=== PATIENT | female | born 1965 | race Caucasian/White ===

== ENCOUNTER 2020-03-29 13:24 | Inpatient (IN) | payer OTHER ==
[~2020-03-29] VITALS: Ht 160 cm; Wt 67.1 kg
--- NOTE | ~2020-03-29 | EMS ---
[place] [address] EMS Patient Care Report Name: BRI DAVIS Room #: 236-P ADM IN M.R.#: [id number] Admission: 03/29/20 Attend Phys: Alana Jefferson MD Discharge: Date of : 65 Report #: [id number] THIS REPORT FOR: //name// Report Transmitted: 03/30/2020 06:31 EMS Care Summary [place], [place]/[facility] Incident [id number] @ 03/29/2020 12:41 [address] [place] [address] Patient KIMBERLEE DAVIS Female, 54 Years 1965 Patient Address [address] [place] [address] Patient History Thyroid Disease,Multiple Sclerosis,Knee Replacement, Patient Allergies Augmentin,Tetanus Toxoid Vaccine, Patient Medications Singulair, Oxybutynin, Other, Chief Complaint WEAKNESS Disposition Transported No Lights/[place] Dispatch Reason Sick Person Transported To [facility] Narrative MEDIC 528 FINDS PT SITTING ON PORCH WITH MOTHER. PT APPEARS IN NO OBVIOUS DISTRESS, IS AAOX4, AND GCS 15. PT STATES SHE IS FEELING WEAKER THAN USUAL AND HAS BEEN FALLING MORE FREQUENTLY. PT DENIES HITTING HEAD AND SAYS FALLS ARE DUE TO LACK OF STRENGTH AND BALANCE. PT STATES [place] [address] EMS Patient Care Report Name: BRI DAVIS Room #: 236-P [facility] IN [facility]#: [id number] Admission: 03/29/20 Attend Phys: Alana Jefferson MD Discharge: Date of : 65 Report #: [id number] STARTING 2 WEEKS AGO, SINCE THEN, SHE HAS FALLEN OVER 10 TIMES. PT SLEPT ON FLOOR LAST NIGHT BECAUSE SHE COULD NOT GET UP. PT STATES SHE HAS NOT BEEN COUGHING, HAVING SHORTNESS OF BREATH, OR NAUSEA/VOMITING RECENTLY. PT DOES BELIEVE SHE HAS A UTI, BECAUSE SHE CHRONICALLY HAS UTI'S. PT COMPLAINS OF NO PAIN BUT DOES SHOW SCARS FROM FALLS AND SURGERIES TO M528. PT IS UNHAPPY WITH HER NEUROLOGIST BECAUSE HE DOES NOT SEE HER IN HOSPITAL. PT DECIDES SHE WANTS TO GO TO [facility]. PT IS ASSISTED TO STRETCHER AND MOVED ONTO AMBULANCE WITHOUT INCIDENT. VITALS ARE CONTINUALLY MONITORED EN ROUTE TO HOSPITAL. PT IS MOVED INTO HOSPITAL WITH A MASK WITHOUT INCIDENT. PT CARE SUCCESSFULLY TRANSFERRED TO [facility]. Initial Vitals @12:59P: 104,R: 18,BP: 109/58,GCS: 15,CO: 9,SpO2: 96,Revised Trauma: 12, @13:08P: 104,R: 16,BP: 113/62,Pain: 10/10,GCS: 15,CO: 12,SpO2: 97,Revised Trauma: 12, Assessments @12:47MENTAL:Person Oriented,Time Oriented,Place Oriented,Event Oriented,SKIN:HEENT:Head/Face: No Abnormalities,Neck/Airway: No Abnormalities,LUNG SOUNDS:General: No Abnormalities,Left Upper: No Abnormalities,Right Upper: No Abnormalities,Left Lower: No Abnormalities,Right Lower: No Abnormalities,ABDOMEN:General: No Abnormalities,Left Upper: No Abnormalities,Right Upper: No Abnormalities,Left Lower: No Abnormalities,Right Lower: No Abnormalities,PELVIS//GI:Pelvis GUOther,EXTREMITIES:Capillary Refill: Right Upper: < 2 Sec,Left Arm: No Abnormalities,Right Arm: No Abnormalities,Left Leg: No Abnormalities,Right Leg: No Abnormalities,PULSE:Radial: 2+ Normal,NEURO:Abnormal Gait,Weakness Left-Sided,Tremors,Other,Weakness Right-Sided, Impression Generalized Weakness Procedures @12:47ALS AssessmentResponse: UnchangedSucceeded@12:56StretcherResponse: Unchanged@12:59Saline Lock 10cc (18 ga) Site: Antecubital-LeftResponse: UnchangedSucceeded Timeline 12:39,Call Received 12:39,Dispatch Notified 12:41,Dispatched 12:41,En Route 12:46,On Scene 12:47,At Patient 12:47,ALS Assessment,Response: UnchangedSucceeded, [facility] [address] [place] [address] EMS Patient Care Report Name: BRI DAVIS Room #: 236-P [facility] IN M.R.#: [id number] Admission: 03/29/20 Attend Phys: Alana Jefferson MD Discharge: Date of : 65 Report #: [id number] 12:56,Stretcher,Response: Unchanged 12:59,BP: 109/58 M,PULSE: 104,RR: 18 R,SPO2: 96 Ox,ETCO2: ,BG: ,PAIN: ,GCS: 15, 12:59,Saline Lock 10cc 18 ga Site: Antecubital-Left,Response: UnchangedSucceeded, 13:03,Depart Scene 13:08,BP: 113/62 M,PULSE: 104,RR: 16 R,SPO2: 97 Ox,ETCO2: ,BG: ,PAIN: 10,GCS: 15, 13:08,At Destination 13:33,Call Closed Disclaimer v1.1 Copyright 2020 [employer] This EMS Care Summary contains data elements from the applicable legal record (which may be displayed differently). It is designed to provide pertinent information for the following purposes: continuity of care, clinical quality, and state data reporting. The complete legal record is available to ED staff and administrators of the receiving hospital in ES's Patient Tracker. All data is provided "as is."
[~2020-03-29 13:24] MED LIST: ALLEGRA30 MG; AVIANE1 EACH PO; BACLOFEN; CLEOCIN HCL300 MG PO; CYMBALTA60 MG PO; KEFLEX500 MG PO; LEVOTHYROXINE 0.1 MG PO; LEXAPRO20 MG; LIORESAL 10 MG10 MG PO; MECLIZINE HCL25 M1; NEURONTIN 300300 M1 PO; OXYBUTYNIN 5 MG5 M2 PO; PROTONIX 20 MG20 M1; SINGULAIR PO; SYMBICORT160 MCG/4.; SYNTHROID125 MCG; TRAZODONE HCL50 MG PO; VICODIN; YASMIN 28 TABL1 EACH
[2020-03-29 13:25] VITALS: BP 116/74
[2020-03-29 14:20] LABS: HEMATOCRIT 27.3 % (37.0-47.0); HEMOGLOBIN 9.5 gm/dL (12.0-15.0); MCH 28.9 pg (26.0-34.0); MCHC 34.7 g/dL (28.0-37.0); MCV 83.2 fL (80.0-100.0); PLATELET COUNT 310 thou/uL (150-400); RBC 3.28 mil/uL (4.20-5.00); RDW 15.5 % (10.5-14.5); WBC 7.3 thou/uL (4.0-11.0)
[2020-03-29 14:38] LABS: ALBUMIN 2.4 g/dL (3.4-5.0); CALCIUM 8.3 mg/dL (8.5-10.1); CREATININE 0.9 mg/dL (0.6-1.0); TOTAL BILIRUBIN 0.6 mg/dL (0.2-1.0); TOTAL PROTEIN 6.3 g/dL (6.4-8.2)
[2020-03-29 14:42] LABS: POTASSIUM 2.8 mmol/L (3.5-5.1)
[2020-03-29 15:00] LABS: ABSOLUTE NEUTROPHILS 4.9 thou/uL (1.4-8.2); ANISOCYTOSIS SLIGHT; ATYPICAL LYMPHS 1 %; NUCLEATED RBCS 1 /100WBC; PLATELET ESTIMATE NORMAL
[2020-03-29 15:06] LABS: URINE BILIRUBIN NEGATIVE (Negative); URINE BLOOD 1+ (Negative); URINE CLARITY SL CLOUDY; URINE COLOR YELLOW; URINE GLUCOSE-RANDOM* NEGATIVE (Negative); URINE KETONES NEGATIVE (Negative); URINE NITRITE-REFLEX NEGATIVE (Negative); URINE PROTEIN (DIPSTICK) TRACE (Negative); URINE SPECIFIC GRAVITY <= 1.005 (1.005-1.035)
[2020-03-29 15:07] LABS: URINE LEUKOCYTES-REFLEX 3+ (Negative)
[2020-03-29 15:33] LABS: CASTS None Seen /LPF (None Seen); SQUAMOUS 0-3 Few /LPF (0-3)
[2020-03-29 15:34] LABS: BACTERIA-REFLEX >30 Many /HPF (None Seen); CRYSTALS None Seen /LPF (None Seen); URINE RBC 0-2 Rare /HPF (0-2); URINE WBC-REFLEX >25 Many /HPF (0-5)
[2020-03-29] MEDS ORDERED: OXYBUTYNIN 5 MG5 M2 PO (16:24)
[2020-03-29] MEDS ORDERED: PROVIGIL 200 M200 MG PO (16:25)
[2020-03-29] MEDS ORDERED: OXYBUTYNIN 5 MG5 M1 PO (16:26)
[2020-03-29] MEDS ORDERED: CYMBALTA60 MG PO (16:31)
[2020-03-29] MEDS ORDERED: LEVOXYL75 MCG PO (16:31)
[2020-03-29 16:40] VITALS: BP 103/73
[2020-03-29 20:03] VITALS: BP 120/68
[2020-03-29 20:06] VITALS: BP 105/64
[2020-03-29 20:15] VITALS: BP 113/61
[2020-03-29 20:27] VITALS: BP 114/66
[2020-03-30 00:01] VITALS: BP 129/79
[2020-03-30 04:00] VITALS: BP 119/67
[2020-03-30 05:27] LABS: CALCIUM 7.9 mg/dL (8.5-10.1); CREATININE 0.9 mg/dL (0.6-1.0); MAGNESIUM 1.9 mg/dL (1.8-2.4); PHOSPHORUS 2.4 mg/dL (2.5-4.9); POTASSIUM 3.7 mmol/L (3.5-5.1)
[2020-03-30 08:06] VITALS: BP 108/66
[2020-03-30 12:56] VITALS: BP 131/78
[2020-03-30 15:58] LABS: ABSOLUTE NEUTROPHILS 4.3 thou/uL (1.4-8.2); BASOPHILS 0.3 % (0.0-2.0); EOSINOPHILS 0.6 % (0.0-3.0); HEMATOCRIT 23.7 % (37.0-47.0); LYMPHOCYTES 17.5 % (24.0-44.0); MCH 28.5 pg (26.0-34.0); MCHC 33.6 g/dL (28.0-37.0); MCV 84.8 fL (80.0-100.0); MONOCYTES 11.5 % (1.0-8.0); PLATELET COUNT 251 thou/uL (150-400); POLYS 70.1 % (36.0-66.0); RDW 15.7 % (10.5-14.5); WBC 6.2 thou/uL (4.0-11.0)
[2020-03-30 16:00] VITALS: BP 127/58
[2020-03-30 17:55] LABS: TSH 8.345 uIU/mL (0.358-3.740)
[2020-03-31 05:31] LABS: ABSOLUTE NEUTROPHILS 4.5 thou/uL (1.4-8.2); BASOPHILS 0.4 % (0.0-2.0); EOSINOPHILS 0.6 % (0.0-3.0); LYMPHOCYTES 22.2 % (24.0-44.0); MCH 29.3 pg (26.0-34.0); MCHC 34.8 g/dL (28.0-37.0); MCV 84.1 fL (80.0-100.0); MONOCYTES 10.6 % (1.0-8.0); PLATELET COUNT 266 thou/uL (150-400); POLYS 66.2 % (36.0-66.0); RBC 2.74 mil/uL (4.20-5.00); RDW 16.1 % (10.5-14.5); WBC 6.8 thou/uL (4.0-11.0)
[2020-03-31 05:46] LABS: ALBUMIN 1.8 g/dL (3.4-5.0); CALCIUM 7.8 mg/dL (8.5-10.1); CREATININE 0.9 mg/dL (0.6-1.0); MAGNESIUM 1.8 mg/dL (1.8-2.4); PHOSPHORUS 3.7 mg/dL (2.5-4.9); POTASSIUM 3.6 mmol/L (3.5-5.1); TOTAL BILIRUBIN 0.3 mg/dL (0.2-1.0)
[2020-03-31 06:06] VITALS: BP 119/60
[2020-03-31 08:30] VITALS: BP 119/86
[2020-03-31 15:50] VITALS: BP 127/80
[2020-03-31 18:55] VITALS: BP 152/94
[2020-04-01 03:28] VITALS: BP 123/75
[2020-04-01 07:18] VITALS: BP 149/96
[2020-04-01 11:30] VITALS: BP 115/69
--- NOTE | 2020-04-01 12:02 | HC ---
[facility] [place] [address] CONSULTATION Name: BRI DAVIS Room #: 360-P ADM IN M.R.#: [id number] Admission: 03/29/20 Attend Phys: Alana Jefferson MD Discharge: Date of : 65 Report #: [id number] THIS REPORT FOR: cc: Estefania Qureshi MD,Estefania Canales,Anoop Middleton MD ~ CC: Estefania Jefferson DATE OF SERVICE: 03/30/2020 HISTORY OF PRESENT ILLNESS: A 54-year-old female patient on whom a brief consultation was done today. I reviewed the records and the patient has a longstanding history of MS. She has been seeing a neurologist subspecializing and demyelinating disorder. She saw Dr. Mcallister at one time and subsequently she sees Dr. Miller. She said her she has tried multiple diseases modifying treatment and ultimately she was put on medication with multiple potential side effects. She is getting MRI done every 3 months according to her. She does not know what the last MRI show whenever she gets urinary tract infection she becomes worse and then she becomes better. She is again admitted with urinary tract infection with urine showing more than 25 wbc's. She also has repeated falls. I am not sure what the etiology of these falls are because the history is not very specific. She has generalized weakness. REVIEW OF SYSTEMS: Positive for hypokalemia, urinary tract infection and generalized weakness. She is feeling somewhat better today. Record indicates she also has a history of breast cancer. This was a relevant 14-point review of system. PAST MEDICAL HISTORY: Positive for MS. FAMILY HISTORY: Unremarkable. SOCIAL HISTORY: She does not smoke. PHYSICAL EXAMINATION: Indicate she is alert and responsive, able to follow simple and complex command. Cranial nerve examinations appear noncontributory. She moves all 4 extremities. She had surgery on the knee. When I do the position sense on the right side, she said she cannot feel anything. When I asked her if that going on for some time or it is new, she does not tell me. She does not appear to have any respiratory difficulty, although she did have some symptoms. She is thinly built individual. Her temperature is 99.5, pulse is 90, respiration is 26. LABORATORY DATA: Indicate she is anemic at hemoglobin of 8, GFR is normal. Calcium is low at 7.9. No imaging study is available. [address] [address] CONSULTATION Name: BRI DAVIS Room #: 360-P [facility] IN ..#: [id number] Admission: 03/29/20 Attend Phys: Alana Jefferson MD Discharge: Date of : 65 Report #: [id number] IMPRESSION: It is difficult to form in this patient. I suspect she has a urinary infection which decompensated her. This has happened multiple times in the past. This patient needs management by a neurologist subspecializing and demyelinating disorder. I told her there is a limited thing we can do here. She is going to follow up with him. I will suggest couple of things. One of them I will suggest doing at least one imaging study of the brain. We can do a CT because she got a regular MRI with her neurologist. I just to make sure there is no etiology there. Secondly, she is being evaluated for physical therapy. I will suggest considering a rehab consult for some date and she can get her strength back. I suspect symptoms are because of urinary tract infection. Otherwise, I think she should follow up with her primary. I did order vitamins and CPK on her to make sure there is no etiology there. I am sure they have checked at some time, but since she has some recurrence of the symptom, it will be desirable to repeat that. Thank you very much for this referral and if you have any question, please feel free to contact me. <ELECTRONICALLY SIGNED> By: Anoop Canales MD 04/01/20 1202 [id number] 13 Anoop Canales MD /nt
[2020-04-01 18:01] VITALS: BP 121/89
[2020-04-01 19:20] VITALS: BP 134/66
[2020-04-02 03:30] VITALS: BP 96/52
[2020-04-02 08:34] VITALS: BP 121/65
[2020-04-02 16:14] VITALS: BP 105/60
[2020-04-02 20:45] VITALS: BP 103/65
[2020-04-03 04:00] VITALS: BP 122/74
[2020-04-03] MEDS ORDERED: CEFDINIR300 MG PO (08:56)
[2020-04-03 10:38] VITALS: BP 120/68
[2020-04-03 10:39] VITALS: BP 122/74
[2020-04-03 11:53] VITALS: BP 122/74
== END 2020-04-03 11:19 | disposition home health service (06) | DRG 871 ==
LOC: ER 13:24 → EROBS 16:39 → ICU 16:39 → 4W 16:39 → 3W 16:39 → 4W 16:41 → EROBS 17:51 → ICU 17:52 → 3W 03-30 19:45 → 4S 04-01 15:01
PROVIDERS: Physician Assistant; Psychiatry & Neurology Neuromuscular Medicine; ADMIT Internal Medicine; ATTEND Internal Medicine
DX: A41.9 Sepsis, unspecified organism (principal); E43 Unspecified severe protein-calorie malnutrition; N39.0 Urinary tract infection, site not specified; G35 Multiple sclerosis; J45.909 Unspecified asthma, uncomplicated; D64.9 Anemia, unspecified; E87.6 Hypokalemia; R39.15 Urgency of urination; R32 Unspecified urinary incontinence; E03.9 Hypothyroidism, unspecified; F32.9 Major depressive disorder, single episode, unspecified; B96.89 Other specified bacterial agents as the cause of diseases classified elsewhere; G89.4 Chronic pain syndrome; Z20.828 Contact with and (suspected) exposure to other viral communicable diseases; F41.8 Other specified anxiety disorders; Z83.49 Family history of other endocrine, nutritional and metabolic diseases; Z85.3 Personal history of malignant neoplasm of breast; Z88.1 Allergy status to other antibiotic agents; Z88.7 Allergy status to serum and vaccine; Z88.8 Allergy status to other drugs, medicaments and biological substances; Z79.899 Other long term (current) drug therapy; Z68.26 Body mass index [BMI] 26.0-26.9, adult
CPT/HCPCS: 10080; 10195; 10196

== ENCOUNTER → 2020-08-24 | Outpatient (CLI) | payer OTHER ==
[~2020-08-24] MED LIST changes: +CEFDINIR300 MG PO; +LEVOXYL75 MCG PO; +OXYBUTYNIN 5 MG5 M1 PO; +PROVIGIL 200 M200 MG PO
== END ==
LOC: RAD 11:42
PROVIDERS: ATTEND Family Medicine
DX: R13.10 Dysphagia, unspecified (principal); G35 Multiple sclerosis